=== PATIENT | male | born 1985 ===

== ENCOUNTER 2019-06-17 09:22 | Emergency (ER) | payer SELFPAY ==
--- NOTE | ~2019-06-17 | XR_ITS ---
EXAMINATION: XR ribs LT 2V w CXR 2V EXAM DATE: 06/17/2019 10:00 INDICATION: No known recent injury provided at this time. Pain of the left ribs laterally. TECHNIQUE: Frontal projection of the upper left ribs, frontal projection of the lower left ribs, obli que projection of the left ribs, frontal and lateral chest x-ray(s) for interpretation. Correlation i s made to chest x-ray 04/20/2009. FINDINGS: There are no displaced acute left rib fractures identified. There are no osteoblastic or o steolytic lesions identified. There is no soft tissue abnormality seen. No confluent consolidation, pneumothorax or pleural effusion suspected. IMPRESSION: Unremarkable left rib, chest x-ray exam. Reviewed, dictated and finalized at location B. [employer]
--- NOTE | 2019-06-17 09:28 | ED.GENADULT ---
HPI - General Adult General Chief complaint: Chest Pain Stated complaint: left rib pain Time Seen by Provider: 06/17/19 09:45 Source: patient and RN notes reviewed Mode of arrival: ambulatory Limitations: no limitations History of Present Illness HPI narrative: 34-year-old male presents with concern for left-sided rib pain. 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 He reports a past incidence of pulling a muscle in his rib area on the right side several years ago. He reports if he is still he can find a position of comfort, however any deep breathing, twisting, moving exacerbates the left lateral lower rib pain. He denies any difficulty breathing, chest pain, diaphoresis, nausea, vomiting, general malaise. Reports he is a heavy smoker. MD complaint: Rib pain Related Data Allergies Allergy/AdvReac Type Severity Reaction Status Date / Time Wasp Allergy Mild Unknown Uncoded 06/17/19 09:47 Review of Systems Review of Systems: Narrative: CONSTITUTIONAL: Denies malaise, chills, sweats, or fever. ENT: Denies rhinorrhea, congestion, sinus pain, otalgia or sore throat. CARDIOVASCULAR: Denies chest pain, palpitations, or edema. RESPIRATORY: Denies cough or dyspnea. Reports left lower lateral rib pain with coughing GASTROINTESTINAL: Denies abdominal pain, nausea, vomiting, diarrhea, bloody, or mucous stools. GENITOURINARY: Denies dysuria or hematuria. SKIN: Denies ecchymosis, erythema MUSCULOSKELETAL: Reports left lateral lower rib pain NEUROLOGIC: Denies numbness, weakness, or headache. All systems reviewed & are unremarkable except as noted in HPI and below PMFSH Comments At time of signature, agree with nursing past medical, surgical, social and family history. There is no relevant family history pertinent to the presenting complaint Exam Narrative: Exam Narrative: GENERAL: Well-appearing, well-nourished, and in no acute distress. HEAD: Normocephalic, atraumatic. EYES: PERRLA, conjunctivae clear ENT: Nares clear, no rhinorrhea or epistaxis. Mucous membranes moist. NECK: Supple. No lymphadenopathy. CHEST: No respiratory distress. Clear to auscultation. No bony deformities, no asymmetry. Speaks in full sentences. Left lateral lower rib tenderness with deep palpation HEART: Regular rate and rhythm. No murmur heard. ABDOMEN: Soft, nontender, nondistended, normal active bowel sounds, no palpable masses. EXTREMITIES: Upper extremities have normal range of motion, no edema, normal strength and sensation. SKIN: Warm, dry, no rash. No ecchymosis, erythema, deformities noted to left ribs NEURO: Alert and oriented x3. PSYCH: Normal mood and affect Course Course Emergency Course: Patient is aware of diagnosis, understands and agrees to treatment plan. Anticipatory guidance given. Patient agrees to follow-up as directed and is aware of reasons to seek care at the emergency department. Portions of this record may have been created with voice recognition software Vital Signs Vital signs: Vital Signs Temperature 98.3 F 06/17/19 09:33 Pulse Rate 109 H 06/17/19 09:33 Respiratory Rate 16 06/17/19 09:33 Blood Pressure 137/80 06/17/19 09:33 Pulse Oximetry 99 06/17/19 09:33 Temperature 98.3 F 06/17/19 09:33 Pulse Rate 109 H 06/17/19 09:33 Respiratory Rate 16 06/17/19 09:33 Blood Pressure 137/80 06/17/19 09:33 Pulse Oximetry 99 06/17/19 09:33 Reviewed. Pt has been instructed to follow up with his primary care provider within the next week regarding his elevated blood pressure today. Medical Decision Making MDM Narrative Medical decision making narrative: Patients injury and pain is consistent with musculoskeletal etiology. No signs of neurological or vascular compromise on exam. Compartments and tissues are soft without signs of compartment syndrome. Pain is felt appropriate for further evaluation on an outpatient basis. Vital Signs Vital Signs: Vital Signs
[2019-06-17 09:33] VITALS: BP 137/80; PULSE 109; RESP 16; TEMP 36.8; O2SAT 99
== END 2019-06-17 10:28 | disposition home or self-care (01) ==
PROVIDERS: Emergency Provider Nurse Practitioner
DX: S29.011A Strain of muscle and tendon of front wall of thorax, initial encounter (principal); X58.XXXA Exposure to other specified factors, initial encounter; F17.200 Nicotine dependence, unspecified, uncomplicated
CPT/HCPCS: 71045; 71101; 99203; G0463

== ENCOUNTER 2019-12-02 15:20 | Emergency (ER) | payer SELFPAY ==
[2019-12-02 15:38] VITALS: BP 129/71; PULSE 119; RESP 20; TEMP 36.9; O2SAT 97
--- NOTE | 2019-12-02 15:47 | ED.MALEGU ---
HPI - Male Genitourinary General Chief complaint: Urogenital-Male Stated complaint: testicular tortion Time Seen by Provider: 12/02/19 15:40 Source: patient and RN notes reviewed History of Present Illness HPI Narrative: Patient is a 34-year-old male who presents the urgent care with complaints of 5-year history of right testicular pain. Patient states he also has had some recent low back pain radiating to the right leg/thigh. Patient states that the pain is increased over the last week or so. Patient states that he has never had an evaluation for his right testicular pain. Patient denies of any blood in the urine, penile discharge, trauma or injury to the testicular region, dysuria, urgency, frequency. Patient states that he has been using ibuprofen as needed for pain. No other acute complaints. No acute distress noted. Patient read the plan of care. Related Data Allergies Allergy/AdvReac Type Severity Reaction Status Date / Time Wasp Allergy Mild Unknown Uncoded 06/17/19 09:47 Review of Systems Review of Systems: Narrative: CONSTITUTIONAL: Denies fever, chills, or sweats. EYES: Denies visual changes, redness, or discharge. ENT: Denies rhinorrhea, congestion, sore throat, or otalgia. CARDIOVASCULAR: Denies chest pain, palpitations, or edema. RESPIRATORY: Denies cough or dyspnea. GASTROINTESTINAL: Denies abdominal pain, nausea, vomiting, or diarrhea. GENITOURINARY: Reports of right testicular pain radiating down the right leg SKIN: Denies rash or itching. MUSCULOSKELETAL: Reports of right low back pain radiating down the right thigh NEUROLOGIC: Denies headache, numbness, or weakness. All other systems reviewed are negative, except as documented in HPI. PMFSH Comments At the time of my signature, I reviewed and agree with the nursing past medical, surgical, social, and family history. There is no relevant family history pertinent to the patient complaint. Exam Narrative: Exam Narrative: GENERAL: This is a well-nourished, well-developed patient, in no apparent distress. HEAD: normocephalic, atraumatic. EYES: PERRL. Sclera clear/white. Vision is grossly intact. EARS: External ears normal, NOSE: External nose normal with no obvious nasal discharge, nares without redness, no rhinorrhea. THROAT: Mucous membranes moist NECK: Neck supple SKIN: warm, intact with no suspicious lesions or rash, good texture and turgor. : cremasteric reflex negative, testicles symmetrical, no obvious injury or anomaly noted. No tenderness. (Assessment completed with RN present) NEURO: awake, alert, and oriented to person, place and time. There were no obvious focal neurologic abnormalities. EXTREMITIES: No clubbing, cyanosis, or edema. BACK: Mild positive right SLE with negative bilateral CVA tenderness Course Vital Signs Vital signs: Vital Signs Temperature 98.5 F 12/02/19 15:38 Pulse Rate 119 H 12/02/19 15:38 Respiratory Rate 12/02/19 15:38 Blood Pressure 129/71 12/02/19 15:38 Pulse Oximetry 97 12/02/19 15:38 Temperature 98.5 F 12/02/19 15:38 Pulse Rate 119 H 12/02/19 15:38 Respiratory Rate 12/02/19 15:38 Blood Pressure 129/71 12/02/19 15:38 Pulse Oximetry 97 12/02/19 15:38 Reviewed MDM - Male Genitourinary MDM Narrative Medical decision making narrative: Advised the patient not to sit for long periods of time. Engage in daily walking and make sure to stretch the sciatic nerve as shown in the facility. It may use a tennis ball for massage purposes. Used ice/ibuprofen as needed to the low back in 20-minute intervals. Use Tylenol/ibuprofen as needed for pain. If you develop any increase in testicular pain?go directly to the emergency room. Obtain follow-up with the PCP within 1 week for reevaluation. Differential Diagnosis Differential diagnosis: Likely urinary tract infection, priapism, urethritis, epididymitis and prostatitis Critical Care Time Critical Care Time Critical Care Time: No Discha
== END 2019-12-02 16:23 | disposition home or self-care (01) ==
PROVIDERS: Emergency Provider Nurse Practitioner Family
DX: M54.31 Sciatica, right side (principal)
CPT/HCPCS: 99211; G0463